=== PATIENT | female | born 1930 | race Caucasian/White ===

== ENCOUNTER 2019-01-12 11:12 | Emergency (ER) | payer OTHER ==
[~2019-01-12] VITALS: Ht 167.6 cm; Wt 68.0 kg
[2019-01-12] MEDS ORDERED: TETANUS-DIPTH-ACEL PERTUSSIS 0.5ML SYRG IM ONE (13:30)
[2019-01-12 13:48] VITALS: BP 132/76
== END 2019-01-12 15:46 | disposition home or self-care (01) ==
LOC: EDBD 11:12 → ER 11:23
DX: S02.2XXA Fracture of nasal bones, initial encounter for closed fracture (principal); S81.012A Laceration without foreign body, left knee, initial encounter; I10 Essential (primary) hypertension; Z86.711 Personal history of pulmonary embolism; W18.09XA Striking against other object with subsequent fall, initial encounter; Y93.89 Activity, other specified; Y92.89 Other specified places as the place of occurrence of the external cause; Y99.8 Other external cause status
CPT/HCPCS: 12002; 70450; 70486; 71045; 72125; 73562; 90471; 90715; 93005; 94761